=== PATIENT | male | born 1985 | race Caucasian/White ===

== ENCOUNTER 2017-05-04 23:19 | Emergency (ER) | payer OTHER ==
[~2017-05-04] VITALS: Ht 177.8 cm; Wt 117.8 kg
[2017-05-04 23:26] VITALS: TEMP 36.7; Ht 177.8 cm; Wt 117.8 kg
[2017-05-04 23:51] VITALS: O2SAT 98
[2017-05-04 23:56] LABS: BASO % 0.3 %; BASO ABS # 0.04 K/uL (0-0.2); COMPLETE YES; EOS % 1.5 %; HEMATOCRIT 48.9 % (42-52); IG% 0.5 %; LYMPH % 26.9 %; LYMPH ABS # 3.13 K/uL (1.2-3.4); MEAN CELL VOLUME 88.4 fL (80-100); MEAN CORPUSCULAR HEMOGLOBIN 29.8 pg (25-34); MEAN CORPUSCULAR HGB CONC 33.7 g/dl (32-36); MEAN PLATELET VOLUME 9.7 fL (7.4-10.4); MONO % 8.9 %; NEUT % 61.9 %; PLATELET COUNT 277 K/uL (130-400); RED BLOOD COUNT 5.53 M/uL (4.7-6.1); WHITE BLOOD COUNT 11.63 K/uL (4.8-10.8)
[2017-05-05 00:09] LABS: POINT OF CARE TROPONIN I < 0.030 ng/ml (0-0.045)
[2017-05-05 00:14] LABS: ALT/SGPT 47 U/L (12-78); BLOOD UREA NITROGEN 21 mg/dl (7-18); BUN/CREATININE RATIO 17.5 (10-20); CALCIUM 8.8 mg/dl (8.5-10.1); CARBON DIOXIDE 26 mmol/L (21-32); CHLORIDE 107 mmol/L (98-107); GLUCOSE 83 mg/dl (70-99); SODIUM 144 mmol/L (136-145)
[2017-05-05 00:18] LABS: ALKALINE PHOSPHATASE 101 U/L (45-117)
[2017-05-05 00:19] LABS: AST/SGOT 30 U/L (15-37)
[2017-05-05] MEDS ORDERED: ALBUT/IPRATROP 3MG/0.5MG NEB 3 ML VIAL INH STA (00:27)
[2017-05-05] MEDS ORDERED: KETOROLAC TROMETHAMINE 30 MG/ML VIAL IV STA (00:27)
[2017-05-05] MEDS ORDERED: RANITIDINE HCL 50 MG/100 ML D5W IV STA (00:31)
[2017-05-05 00:40] LABS: POTASSIUM 3.8 mmol/L (3.5-5.1)
--- NOTE | 2017-05-05 02:56 | EMERGENCY ROOM VISIT NOTE ---
History First contact with patient: 23:24 Chief Complaint: CHEST PAIN Stated Complaint: RIGHT LOWER CHEST PAIN Nursing Triage Summary: Pt states he developed midsternal chest pain around 2030 with associated SOB. History of Present Illness The patient is a 32 year old male who presents to the Emergency Room with complaints of midsternal right-sided chest pain since 8:30 tonight with shortness of breath. Patient discussed pain as aching, ranging in severity 6 out of 10. Breathing makes it worse and nothing makes it better. Patient denies cough, congestion, back pain, leg pain or swelling, nausea, vomiting, diarrhea, abdominal pain. He is tolerating by mouth fluids and food. Review of Systems See HPI for pertinent positives & negatives. A total of 10 systems reviewed and were otherwise negative. Past Medical/Surgical History Diverticulitis Family History Diabetes mellitus FH: heart disease Social History Smoking Status: Current Every Day Smoker Alcohol Use: none Drug Use: none Marital Status: single Housing Status: lives with family Occupation Status: unemployed Current/Historical Medications No Active Prescriptions or Reported Meds Allergies Coded Allergies: No Known Allergies (Unverified , NONE, 05/04/17) Physical Exam Vital Signs Date Time Temp Pulse Resp B/P (MAP) Pulse Ox O2 Delivery O2 Flow Rate FiO2 05/05/17 02:59 69 18 115/62 98 Room Air 05/05/17 01:57 68 18 130/74 95 Room Air 05/05/17 00:30 77 20 124/77 97 Room Air 05/04/17 23:51 98 Room Air 05/04/17 23:51 97 Room Air 05/04/17 23:42 97 Room Air 05/04/17 23:39 71 05/04/17 23:26 36.7 89 18 131/82 95 Room Air Physical Exam VITALS: Vitals are noted on the nurse's note and reviewed by myself. Vital signs stable. GENERAL: Pleasant male, in no acute distress, nondiaphoretic, well-developed well-nourished. SKIN: The skin was without rashes, erythema, edema, or bruising. There is no tenting of the skin. Capillary reflex less than 2 seconds. HEAD: Normocephalic atraumatic. EARS: External auditory canals clear, tympanic membranes pearly french without erythema or effusion bilaterally. EYES: Pupils equal round and reactive to light and accommodation. Conjunctivae without injection, sclerae without icterus. Extraocular movements intact. NOSE: Patent, turbinates without inflammation or discharge. MOUTH: Mucous membranes moist. Pharynx without erythema or exudate. Uvula midline. Airway patent. Tongue does not deviate. NECK: Supple without nuchal rigidity. No lymphadenopathy. No thyromegaly. Cervical spine is nontender. No JVD. HEART: Regular rate and rhythm without murmurs gallops or rubs. Tender to palpation LUNGS: Clear to auscultation bilaterally without wheezes, rales or rhonchi. No dullness to percussion. No retractions or accessory muscle use. ABDOMEN: Positive bowel sounds x 4. Normal tympanic percussion. Soft, minimally tender to palpation epigastric region, no CVA tenderness without masses or organomegaly. [place] sign negative. No guarding or rebound tenderness. MUSCULOSKELETAL: No muscle atrophy, erythema, or edema noted. NEURO: Patient was alert and oriented to person place and time. Normal sensation to light and sharp touch. No focal neurological deficits. Medical Decision & Procedures Laboratory Results 05/04/17 23:35 Red Blood Count 5.53, Mean Corpuscular Volume 88.4, Mean Corpuscular Hemoglobin 29.8, Mean Corpuscular Hemoglobin Concent 33.7, Mean Platelet Volume 9.7, Neutrophils (%) (Auto) 61.9, Lymphocytes (%) (Auto) 26.9, Monocytes (%) (Auto) 8.9, Eosinophils (%) (Auto) 1.5, Basophils (%) (Auto) 0.3, Neutrophils # (Auto) 7.18, Lymphocytes # (Auto) 3.13, Monocytes # (Auto) 1.04, Eosinophils # (Auto) 0.18, Basophils # (Auto) 0.04 05/04/17 23:35 Test 05/04/17 23:35 05/04/17 23:49 05/05/17 02:37 White Blood Count 11.63 K/uL (4.8-10.8) Red Blood Count 5.53 M/uL (4.7-6.1) Hemoglobin 16.5 g/dL (14.0-18.0) Hematocrit 48.9 % (42-52) Mean Corpuscular Volume 88.4 fL (80-100) Mean Corpuscular Hemoglobin 29.8 pg (25-34) Mean Corpuscular Hemoglobin Concent 33.7 g/dl (32-36) Platelet Count 277 K/uL (130-400) Mean Platelet Volume 9.7 fL (7.4-10.4) Neutrophils (%) (Auto) 61.9 % Lymphocytes (%) (Auto) 26.9 % Monocytes (%) (Auto) 8.9 % Eosinophils (%) (Auto) 1.5 % Basophils (%) (Auto) 0.3 % Neutrophils # (Auto) 7.18 K/uL (1.4-6.5) Lymphocytes # (Auto) 3.13 K/uL (1.2-3.4) Monocytes # (Auto) 1.04 K/uL (0.11-0.59) Eosinophils # (Auto) 0.18 K/uL (0-0.5) Basophils # (Auto) 0.04 K/uL (0-0.2) RDW Standard Deviation 40.9 fL (36.4-46.3) RDW Coefficient of Variation 12.6 % (11.5-14.5) Immature Granulocyte % (Auto) 0.5 % Immature Granulocyte # (Auto) 0.06 K/uL (0.00-0.02) Anion Gap 11.0 mmol/L (3-11) Est Creatinine Clear Calc Drug Dose 113.7 ml/min Estimated GFR () 92.2 Estimated GFR (Non- 79.5 BUN/Creatinine Ratio 17.5 (10-20) Calcium Level 8.8 mg/dl (8.5-10.1) Total Bilirubin 0.7 mg/dl (0.2-1) Direct Bilirubin 0.1 mg/dl (0-0.2) Aspartate Amino Transf (AST/SGOT) 30 U/L (15-37) Alanine Aminotransferase (ALT/SGPT) 47 U/L (12-78) Alkaline Phosphatase 101 U/L (45-117) Troponin I < 0.015 ng/ml (0-0.045) Total Protein 8.1 gm/dl (6.4-8.2) Albumin 4.1 gm/dl (3.4-5.0) Lipase 207 U/L (73-393) Bedside D-Dimer 283 ng/mlFEU (0-450) Bedside Troponin I < 0.030 ng/ml (0-0.045) Medications Administered Medications (Trade) Dose Ordered Sig/Светлана Route Start Time Stop Time Status Last Admin Dose Admin Ranitidine HCl (zANTac IV) 50 mg NOW STAT IV 05/05/17 00:31 05/05/17 00:32 DC 05/05/17 00:37 50 MG ED Course Prior records/ancillary studies reviewed. Triage Nursing notes reviewed. Additional history obtained from family. The patient's history was concerning for chest pain. Differential diagnosis: Etiologies such as cardiac ischemia, aortic dissection, pulmonary embolism, pneumonia, pneumothorax, musculoskeletal, infections, pericarditis, myocarditis , esophageal rupture, gastrointestinal, as well as others were entertained. Physical examination: As above. ER treatment provided: Patient was observed On reassessment the patient felt better. Diagnostic interpretation by me: The electrocardiogram was negative for pathologic change. Normal sinus, normal intervals, no acute ST-T wave changes. Impression normal sinus rhythm interpreted by myself The labs revealed negative troponin 2 that is 2 hours apart. Negative d-dimer Imaging studies: Chest x-ray with no acute consolidation, pneumothorax or free air per my interpretation Ultrasound negative for cholecystitis Exam and history seem consistent with chest pain most likely cardiac in etiology. Patient had a normal EKG and 2 troponins that were negative there were greater than 2 hours apart. Negative d-dimer. No pneumonia. He was advised to avoid activity that causes pain and follow-up family care in a few days or here in the ER sooner for chest pain, difficulty breathing, worsening signs or symptoms or as needed. By the evaluation outlined above emergent etiologies such as cardiac ischemia, aortic dissection, pulmonary embolism, pneumonia, pneumothorax, infections, pericarditis, myocarditis, gastrointestinal, as well as others were deemed relatively unlikely. The pt informed about the findings as listed above. All questions were answered and pleased with the treatment. Return instructions were outlined and the patient was discharged in stable condition. Referral: The patient was referred back to primary care physician for follow-up in 2 to 3 days for a recheck of the current condition. Case reviewed with my attending Medical Decision As above Impression Primary Impression: Substernal precordial chest pain Departure Information Dispostion Home / Self-Care Condition GOOD Prescriptions No Active Prescriptions or Reported Meds Referrals Joe Baca M.D. (PCP) Patient Instructions My [facility] Additional Instructions Protonix 40 m tablet daily for next 2 weeks. Take this on an empty stomach. Try Maalox or Zantac for breakthrough symptoms for reflux. Avoid large meals. Avoid acidic foods. Rest and drink plenty of fluids as tolerated. Continue current medications. Avoid strenuous activities and anything that worsens your pain. Resume normal activities once your symptoms resolve. Return to the ER immediately for worsening or persistent chest pain, abdominal pain, black or blood in your stools, vomiting, fevers, chest pains, difficulty breathing, worsening of your condition, or as needed. Follow up with your primary physician in 2-3 days for a recheck of your current condition.
[2017-05-05 02:59] VITALS: BP 115/62; O2SAT 98
[2017-05-05] MEDS ORDERED: PANTOprazole SOD 40 MG TAB PO STA (03:01)
[2017-05-05] MEDS ORDERED: PANT40TA PO (03:02)
[2017-05-05 03:11] VITALS: PULSE 68
--- NOTE | 2017-05-05 07:15 | DIAGNOSTIC IMAGING REPORT ---
ABDOMINAL ULTRASOUND, RIGHT UPPER QUADRANT HISTORY: epigastric pain, ? GB. COMPARISON: Abdomen and pelvis CT 04/10/2016. FINDINGS: Pancreas: Obscured by overlying bowel gas. Liver: Geographic hyperechoic area within the right hepatic lobe. This favors focal fat. This has a non masslike appearance. This measures approximate 8.5 x 4.8 cm. Gallbladder: No gallbladder wall thickening. No gallstones. CBD: 4 mm. Right kidney: No hydronephrosis. IMPRESSION: 1. Normal gallbladder. No gallstones. 2. Geographic hyperechoic area within the right hepatic lobe which favors focal fat. Electronically signed by: Charles Urbano M.D. 05/05/2017 7:14 AM Dictated Date/Time: 05/05/2017 7:12 AM
--- NOTE | 2017-05-05 07:42 | DIAGNOSTIC IMAGING REPORT ---
CHEST ONE VIEW PORTABLE HISTORY: Atypical CHEST PAIN COMPARISON: Chest 04/10/2016. FINDINGS: The lungs are clear. Cardiac silhouette is normal in size. No pleural effusions. No pneumothorax. IMPRESSION: No acute process. Electronically signed by: Charles Urbano M.D. 05/05/2017 7:41 AM Dictated Date/Time: 05/05/2017 7:40 AM
== END 2017-05-05 03:06 | disposition home or self-care (01) ==
LOC: C.EDB 23:21
DX: R07.2 Precordial pain (principal); K57.92 Diverticulitis of intestine, part unspecified, without perforation or abscess without bleeding; F17.200 Nicotine dependence, unspecified, uncomplicated

== ENCOUNTER 2017-06-15 07:30 | Emergency (ER) | payer OTHER ==
[~2017-06-15] VITALS: Ht 180.3 cm; Wt 115.7 kg
[2017-06-15 07:32] VITALS: TEMP 36.8; Ht 180.3 cm; Wt 115.7 kg
[2017-06-15] MEDS ORDERED: HYDROCODONE/ACETAMOPHEN 5/325MG TAB PO STA (07:50)
--- NOTE | 2017-06-15 07:55 | EMERGENCY ROOM VISIT NOTE ---
ED Visit Note First contact with patient: 07:36 CHIEF COMPLAINT: Toothache /broken tooth HISTORY OF PRESENT ILLNESS: This 32-year-old male presents to the ER with chief complaint of left upper tooth breaking off and being painful. The patient states that he bit into a piece of taffy this morning and his left upper tooth broke off and is now painful. The patient does not think he has dental insurance. He thought we could just pull it in the emergency room which is why he came here today. The patient denies any facial pain or redness. REVIEW OF SYSTEMS: 6 system review was performed and was negative unless stated otherwise in history of present illness. PMH: The patient is healthy; there is no significant medical or surgical history. SOCIAL HISTORY: Patient lives with his fianc. The patient admits to tobacco use but denies any alcohol use. PHYSICAL EXAM: Vital Signs: Were reviewed Reviewed Nurse's notes. GENERAL: 32- year-old male appears uncomfortable secondary to tooth pain. MENTAL Status: Alert and oriented 3. FACE: No erythema or edema noted. MOUTH: Left upper tooth is broken off at the gumline. Surrounding gums without erythema or edema. NECK: Supple, no lymphadenopathy noted. EMERGENCY COURSE: The patient was evaluated. The patient was given [place] 5/325 mg 2 tablets by mouth for pain. I had the case management manager give him information on local tenderness. The patient was discharged home in stable condition with his fianc driving. DIAGNOSIS: Dentalgia/broken tooth DISCHARGE INSTRUCTIONS & TREATMENT: Take amoxicillin as prescribed. Ibuprofen 600 mg every 6 hours with food for pain. Take [place] as needed for more severe pain. Do not drive while taking the [place]. Appointment with a dentist as soon as possible for definitive care. Allergies Coded Allergies: No Known Allergies (Unverified , NONE, 05/04/17) Vital Signs Date Time Temp Pulse Resp B/P (MAP) Pulse Ox O2 Delivery O2 Flow Rate FiO2 06/15/17 07:32 36.8 67 20 132/83 95 Room Air Departure Information Referrals Joe Baca M.D. (PCP) Patient Instructions My [facility]
[2017-06-15] MEDS ORDERED: HYDR-5688 PO (07:57)
[2017-06-15] MEDS ORDERED: AMOX500C3 PO (07:57)
[2017-06-15 08:12] VITALS: BP 129/77; PULSE 68; O2SAT 99
== END 2017-06-15 08:13 | disposition home or self-care (01) ==
LOC: C.EDB 07:33
DX: K08.89 Other specified disorders of teeth and supporting structures (principal); F17.200 Nicotine dependence, unspecified, uncomplicated

== ENCOUNTER 2017-12-14 11:36 | Emergency (ER) | payer OTHER ==
[~2017-12-14] VITALS: Ht 177.8 cm; Wt 111.1 kg
[~2017-12-14 11:36] MED LIST: HYDR-5688 PO
[2017-12-14 11:39] VITALS: TEMP 36.8; Ht 177.8 cm; Wt 111.1 kg
[2017-12-14] MEDS ORDERED: SODIUM CHLORIDE 0.9% 1000ML 1,000 ML IV STA (11:43)
[2017-12-14] MEDS ORDERED: ONDANSETRON INJ 2 MG/ML 2 ML VIAL IV STA (11:43)
[2017-12-14] MEDS ORDERED: COUGH DROP (SUGAR FREE) LOZ 24 LOZ/1 BOX LOZ STA (12:03)
[2017-12-14] MEDS ORDERED: KETOROLAC TROMETHAMINE 30 MG/ML VIAL IV STA (12:03)
--- NOTE | 2017-12-14 12:09 | DIAGNOSTIC IMAGING REPORT ---
SINGLE VIEW CHEST CLINICAL HISTORY: Generalized weakness. Cough and vomiting. FINDINGS: An AP, portable, upright chest radiograph is compared to study dated 05/04/2017. The examination is degraded by portable technique and patient rotation. The cardiomediastinal silhouette is unremarkable. The lungs and pleural spaces are clear. No pneumothorax is seen. The bony thorax is grossly intact. IMPRESSION: No active disease in the chest. Electronically signed by: Ramu Jefferson M.D. 12/14/2017 12:08 PM Dictated Date/Time: 12/14/2017 12:07 PM
[2017-12-14 12:10] LABS: BASO % 0.2 %; BASO ABS # 0.02 K/uL (0-0.2); EOS ABS # 0.16 K/uL (0-0.5); HEMATOCRIT 46.8 % (42-52); HEMOGLOBIN 16.1 g/dL (14.0-18.0); IG# 0.06 K/uL (0.00-0.02); LYMPH % 10.1 %; LYMPH ABS # 0.82 K/uL (1.2-3.4); MEAN CORPUSCULAR HEMOGLOBIN 30.6 pg (25-34); MEAN CORPUSCULAR HGB CONC 34.4 g/dl (32-36); MEAN PLATELET VOLUME 9.6 fL (7.4-10.4); MONO % 9.3 %; MONO ABS # 0.75 K/uL (0.11-0.59); NEUT % 77.7 %; NEUT ABS # 6.28 K/uL (1.4-6.5); PLATELET COUNT 199 K/uL (130-400); RED CELL DISTRIBUTION WIDTH SD 42.1 fL (36.4-46.3); WHITE BLOOD COUNT 8.09 K/uL (4.8-10.8)
[2017-12-14 12:27] LABS: ALBUMIN 3.7 gm/dl (3.4-5.0); ALT/SGPT 32 U/L (12-78); AST/SGOT 18 U/L (15-37); BLOOD UREA NITROGEN 13 mg/dl (7-18); CALCIUM 8.4 mg/dl (8.5-10.1); CARBON DIOXIDE 22 mmol/L (21-32); GLUCOSE 120 mg/dl (70-99); LIPASE 126 U/L (73-393); POTASSIUM 3.6 mmol/L (3.5-5.1); SODIUM 135 mmol/L (136-145)
[2017-12-14 12:38] LABS: ALKALINE PHOSPHATASE 113 U/L (45-117); TOTAL PROTEIN 7.9 gm/dl (6.4-8.2)
--- NOTE | 2017-12-14 12:52 | EMERGENCY ROOM VISIT NOTE ---
History Report prepared by Jung: Muna Brand Under the Supervision of: Dr. Roger Vincent M.D. First contact with patient: 11:43 Chief Complaint: VOMITING Stated Complaint: VOMITING, COUGH, LUNGS HURT, 105 TEMP Nursing Triage Summary: c/o vomiting, coughing, congestion, painful lungs. Ongoing since yesterday. pt reports he took his temp this am and it was 105. took Robitussin. denies taking Ibuprofen or Tylenol today History of Present Illness The patient is a 32 year old male who presents to the Emergency Room with complaints of persistent fever starting yesterday. The patient started feeling sick yesterday. He has had a cough, fever, and vomiting. He last vomited this morning. His lungs feel painful. He tried taking Dayquil and Nyquil to no significant relief. He reports body aches, sore throat, and ear ache. He has had left ear ringing with intermittent pain for the past 4 days. He has had some rash and itching over his forearms. His daughter was recently diagnosed with the flu. He has a history of diverticulitis. He has noticed recently that he has abdominal pain whenever he eats ketchup or tomato sauce. He currently does not have any abdominal pain. He denies any history of gallbladder problems. Pt denies LOC, headache, chills, diaphoresis, visual changes, neck pain, breathing difficulties, abdominal pain, back pain, melena, hematochezia, urinary symptoms, numbness, weakness, lymphadenopathy, or other complaints. Source of History: patient Onset: yesterday Position: other (global) Quality: other (fever) Timing: other (persistent) Associated Symptoms: + sorethroat, + cough, + vomiting, + rash Note: Pt reports body aches, ear pain. Review of Systems See HPI for pertinent positives and negatives. A total of ten systems were reviewed and were otherwise negative. Past Medical & Surgical Medical Problems: (1) Acute diverticulitis (2) Back pain (3) Back pain (4) Chest pain (5) Chest pain (6) Urethral discharge in male (7) Urethral discharge in male (8) Vomiting and diarrhea (9) Vomiting and diarrhea Family History Diabetes mellitus FH: heart disease Social History Smoking Status: Former Smoker Alcohol Use: none Drug Use: none Marital Status: single Housing Status: lives with family Occupation Status: unemployed Current/Historical Medications Scheduled Oseltamivir (Tamiflu), 75 MG PO BID Scheduled PRN Promethazine Hcl (Phenergan), 25 MG PO Q6H PRN for Nausea Allergies Coded Allergies: No Known Allergies (Unverified , NONE, 12/14/17) Physical Exam Vital Signs Date Time Temp Pulse Resp B/P (MAP) Pulse Ox O2 Delivery O2 Flow Rate FiO2 12/14/17 13:34 72 125/74 99 12/14/17 12:35 82 16 131/77 98 Room Air 12/14/17 11:39 36.8 93 18 131/84 95 Room Air Physical Exam GENERAL: Awake, alert, mildly ill appearing, no distress HEAD: Normocephalic, atraumatic. No edema. EYES: Normal conjunctiva. Sclera non-icteric. EARS: Right TM normal. Left TM normal. NOSE: Mild congestion. OROPHARYNX: Lips, tongue, and mucosa unremarkable. No erythema or exudate. NECK: Supple. No nuchal rigidity. FROM. No adenopathy. Negative jolt accentuation test. RESPIRATORY: CTA bilaterally. No wheezes rales or rhonchi. CARDIAC: Borderline tachycardic rate, normal rhythm. ABDOMEN: Soft, non distended. No tenderness to palpation. NEURO: Normal sensorium. SKIN: No rash or jaundice noted Medical Decision & Procedures ER Provider Diagnostic Interpretation: Xray results as stated below per my and radiologist interpretation: SINGLE VIEW CHEST CLINICAL HISTORY: Generalized weakness. Cough and vomiting. FINDINGS: An AP, portable, upright chest radiograph is compared to study dated 05/04/2017. The examination is degraded by portable technique and patient rotation. The cardiomediastinal silhouette is unremarkable. The lungs and pleural spaces are clear. No pneumothorax is seen. The bony thorax is grossly intact. IMPRESSION: No active disease in the chest. Electronically signed by: Ramu Jefferson M.D. 12/14/2017 12:08 PM Dictated Date/Time: 12/14/2017 12:07 PM Laboratory Results 12/14/17 11:55 Red Blood Count 5.26, Mean Corpuscular Volume 89.0, Mean Corpuscular Hemoglobin 30.6, Mean Corpuscular Hemoglobin Concent 34.4, Mean Platelet Volume 9.6, Neutrophils (%) (Auto) 77.7, Lymphocytes (%) (Auto) 10.1, Monocytes (%) (Auto) 9.3, Eosinophils (%) (Auto) 2.0, Basophils (%) (Auto) 0.2, Neutrophils # (Auto) 6.28, Lymphocytes # (Auto) 0.82, Monocytes # (Auto) 0.75, Eosinophils # (Auto) 0.16, Basophils # (Auto) 0.02 12/14/17 11:55 Test 12/14/17 11:45 12/14/17 11:55 Influenza Type A Antigen POS for Influ A (NEG) Influenza Type B Antigen Neg for Influ B (NEG) White Blood Count 8.09 K/uL (4.8-10.8) Red Blood Count 5.26 M/uL (4.7-6.1) Hemoglobin 16.1 g/dL (14.0-18.0) Hematocrit 46.8 % (42-52) Mean Corpuscular Volume 89.0 fL (80-100) Mean Corpuscular Hemoglobin 30.6 pg (25-34) Mean Corpuscular Hemoglobin Concent 34.4 g/dl (32-36) Platelet Count 199 K/uL (130-400) Mean Platelet Volume 9.6 fL (7.4-10.4) Neutrophils (%) (Auto) 77.7 % Lymphocytes (%) (Auto) 10.1 % Monocytes (%) (Auto) 9.3 % Eosinophils (%) (Auto) 2.0 % Basophils (%) (Auto) 0.2 % Neutrophils # (Auto) 6.28 K/uL (1.4-6.5) Lymphocytes # (Auto) 0.82 K/uL (1.2-3.4) Monocytes # (Auto) 0.75 K/uL (0.11-0.59) Eosinophils # (Auto) 0.16 K/uL (0-0.5) Basophils # (Auto) 0.02 K/uL (0-0.2) RDW Standard Deviation 42.1 fL (36.4-46.3) RDW Coefficient of Variation 13.0 % (11.5-14.5) Immature Granulocyte % (Auto) 0.7 % Immature Granulocyte # (Auto) 0.06 K/uL (0.00-0.02) Prothrombin Time 10.9 SECONDS (9.0-12.0) Prothromb Time International Ratio 1.0 (0.9-1.1) Activated Partial Thromboplast Time 30.0 SECONDS (21.0-31.0) Partial Thromboplastin Ratio 1.2 Anion Gap 7.0 mmol/L (3-11) Est Creatinine Clear Calc Drug Dose 120.3 ml/min Estimated GFR () 102.4 Estimated GFR (Non- 88.4 BUN/Creatinine Ratio 11.7 (10-20) Calcium Level 8.4 mg/dl (8.5-10.1) Magnesium Level 2.0 mg/dl (1.8-2.4) Total Bilirubin 0.3 mg/dl (0.2-1) Direct Bilirubin < 0.1 mg/dl (0-0.2) Aspartate Amino Transf (AST/SGOT) 18 U/L (15-37) Alanine Aminotransferase (ALT/SGPT) 32 U/L (12-78) Alkaline Phosphatase 113 U/L (45-117) Troponin I < 0.015 ng/ml (0-0.045) Total Protein 7.9 gm/dl (6.4-8.2) Albumin 3.7 gm/dl (3.4-5.0) Lipase 126 U/L (73-393) Thyroid Stimulating Hormone (TSH) 1.090 uIu/ml (0.300-4.500) Laboratory results reviewed by me Medications Administered Medications (Trade) Dose Ordered Sig/Светлана Route Start Time Stop Time Status Last Admin Dose Admin Sodium Chloride 1,000 ml @ 999 mls/hr Q1H1M STAT IV 12/14/17 11:43 12/14/17 12:43 DC 12/14/17 11:43 999 MLS/HR Ondansetron HCl (Zofran Inj) 4 mg NOW STAT IV 12/14/17 11:43 12/14/17 11:45 DC 12/14/17 11:59 4 MG Ketorolac Tromethamine (Toradol Inj) 15 mg NOW STAT IV 12/14/17 12:03 12/14/17 12:04 DC 12/14/17 12:35 15 MG Menthol ([place]) 1 corby NOW STAT CORBY 12/14/17 12:03 12/14/17 12:04 DC 12/14/17 12:35 1 CORBY Oseltamivir Phosphate (Tamiflu Cap) 75 mg NOW STAT PO 12/14/17 12:53 12/14/17 12:54 DC 12/14/17 13:36 75 MG ECG Indication: SOB/dyspnea Rate (beats per minute): 86 Rhythm: normal sinus Findings: no acute ischemic change, no ectopy Change: Patient's electrocardiogram was interpreted by me. ED Course 1143: Zofran Inj 4 mg IV, NSS 1000 ml @ 999 mls/hr IV. 1202: The patient was evaluated in room C7. A complete history and physical exam was performed. 1203: Menthol 1 corby CORBY, Toradol Inj 15 mg IV. 1253: Tamiflu Cap 75 mg PO. 1312: I reevaluated the patient. Discussed results and discharge instructions: He verbalized understanding and agreement. The patient is ready for discharge. Medical Decision Prior records/ancillary studies reviewed. Triage Nursing notes reviewed and agree them. The patient's history was concerning for fever. Differential diagnosis: Etiologies such as viral syndrome, otitis, pharyngitis, pneumonia, influenza, meningitis, urinary tract infection, sepsis, bacteremia, as well as others were entertained. Physical examination: As above. ER treatment provided: Saline 1 L bolus Zofran Cepacol Toradol On reassessment the patient felt better. Tamiflu Diagnostics interpreted by me: The labs revealed an unremarkable CBC and chemistry panel. The patient is influenza positive Imaging studies: Chest x-ray as above The patient has influenza. He was hydrated. He is doing much better. He was given a work note and prescription for Tamiflu. He is also given a prescription of Phenergan. By the evaluation outlined above emergent etiologies such as otitis, pharyngitis, pneumonia, meningitis, urinary tract infection, sepsis, bacteremia , as well as others were deemed relatively unlikely. The patient was informed about the findings as listed above. All questions were answered and he was pleased with the treatment. Return instructions were outlined and the patient was discharged in stable condition. Outpatient prescription management: Tamiflu Phenergan Referral: The patient was referred back to his primary care physician for follow-up in 2 to 3 days for a recheck of the current condition. Medication Reconcilliation Current Medication List: was personally reviewed by me Blood Pressure Screening Patient's blood pressure: Elevated blood pressure Blood pressure disposition: Referred to PCP Impression Primary Impression: Influenza Additional Impression: Vomiting Scribe Attestation The scribe's documentation has been prepared under my direction and personally reviewed by me in its entirety. I confirm that the note above accurately reflects all work, treatment, procedures, and medical decision making performed by me. Departure Information Dispostion Home / Self-Care Prescriptions Promethazine Hcl (Phenergan) 25 Mg Tab 25 MG PO Q6H Y for Nausea, #10 TAB Prov: Roger Vincent MD 12/14/17 Oseltamivir (Tamiflu) 75 Mg Cap 75 MG PO BID, #9 CAP Prov: Roger Vincent MD 12/14/17 Referrals No Doctor, Assigned (PCP) Patient Instructions My [facility] Additional Instructions Tamiflu 75 mg twice daily for 5 days. Acetaminophen(Tylenol) may be used for fever or pain. Use 1000mg every six hours as needed. Avoid using more than 4000mg in a 24 hour period. (AND/OR) Ibuprofen(Motrin, Advil) may be used for fever or pain. Use 600mg every six hours as needed. Take with food. Avoid using more than 2400mg in a 24 hour period. Do not use 2400mg per day for more than three consecutive days without physician direction. Prolonged inappropriate use can lead to stomach upset or ulcers. Phenergan 25mg tabs, one every six hours for nausea. Do not drive if taking. Rest and drink plenty of fluids. Controlling your fever with Tylenol and Ibuprofen as above will make you feel better. Wash your hands after nose blowing, sneezing, or coughing. Most germs are spread through contact, therefore improper hygiene may result in your close contacts and loved ones becoming ill just like you. Return to the ER for severe headache, neck stiffness, chest pain, difficulty breathing, fevers, vomiting, worsening of your condition, or as needed. Follow up with your primary physician this week for a recheck of your current condition. Problem Qualifiers
[2017-12-14 12:53] LABS: INFLUENZA B ANTIGEN Neg for Influ B (NEG)
[2017-12-14] MEDS ORDERED: OSELTAMIVIR PHOSPHATE 75 MG CAP PO STA (12:53)
[2017-12-14] MEDS ORDERED: PROM25TA9 PO (13:09)
[2017-12-14] MEDS ORDERED: OSEL75CA12 PO (13:09)
[2017-12-14 13:34] VITALS: BP 125/74; PULSE 72; O2SAT 99
== END 2017-12-14 13:34 | disposition home or self-care (01) ==
LOC: C.EDB 11:38 → C.EDC 13:34
DX: J10.1 Influenza due to other identified influenza virus with other respiratory manifestations (principal); R11.10 Vomiting, unspecified; K57.92 Diverticulitis of intestine, part unspecified, without perforation or abscess without bleeding; Z83.3 Family history of diabetes mellitus; Z82.49 Family history of ischemic heart disease and other diseases of the circulatory system; Z87.891 Personal history of nicotine dependence

== ENCOUNTER 2017-12-20 13:11 | Emergency (ER) | payer OTHER ==
[~2017-12-20] VITALS: Ht 177.8 cm; Wt 109.0 kg
[~2017-12-20 13:11] MED LIST changes: -HYDR-5688 PO; +OSEL75CA12 PO; +PROM25TA9 PO
[2017-12-20 13:19] VITALS: TEMP 36.9; Ht 177.8 cm; Wt 109.0 kg
[2017-12-20] MEDS ORDERED: DEXAMETHASONE SOD INJ 4 MG/ML VIAL IV STA (13:32)
[2017-12-20] MEDS ORDERED: SODIUM CHLORIDE 0.9% 1000ML 1,000 ML IV STA (13:32)
[2017-12-20] MEDS ORDERED: KETOROLAC TROMETHAMINE 30 MG/ML VIAL IV STA (13:32)
[2017-12-20] MEDS ORDERED: ONDANSETRON INJ 2 MG/ML 2 ML VIAL IV STA (13:32)
[2017-12-20] MEDS ORDERED: DiphenhydrAMINE HCL 50 MG/ML VIAL IV STA (13:32)
[2017-12-20 14:07] LABS: BASO % 0.2 %; BASO ABS # 0.02 K/uL (0-0.2); EOS % 1.1 %; EOS ABS # 0.12 K/uL (0-0.5); HEMOGLOBIN 14.8 g/dL (14.0-18.0); IG# 0.09 K/uL (0.00-0.02); LYMPH % 19.2 %; LYMPH ABS # 2.19 K/uL (1.2-3.4); MEAN CELL VOLUME 89.4 fL (80-100); MEAN CORPUSCULAR HEMOGLOBIN 30.8 pg (25-34); MEAN CORPUSCULAR HGB CONC 34.4 g/dl (32-36); MEAN PLATELET VOLUME 9.5 fL (7.4-10.4); MONO % 8.4 %; MONO ABS # 0.96 K/uL (0.11-0.59); NEUT % 70.3 %; NEUT ABS # 8.02 K/uL (1.4-6.5); PLATELET COUNT 229 K/uL (130-400); RED CELL DISTRIBUTION WIDTH CV 12.7 % (11.5-14.5)
[2017-12-20 14:18] LABS: CALCIUM 8.2 mg/dl (8.5-10.1); CREATININE 0.92 mg/dl (0.60-1.40); POTASSIUM 3.7 mmol/L (3.5-5.1)
--- NOTE | 2017-12-20 14:27 | DIAGNOSTIC IMAGING REPORT ---
CT OF THE HEAD WITHOUT CONTRAST CLINICAL HISTORY: Vomiting. Severe headache. Evaluate for hemorrhage. COMPARISON STUDY: Head CT June 29, 2011. CT DOSE: 537.48 mGy.cm TECHNIQUE: Helical axial images of the head were obtained without IV contrast. Automated exposure control was utilized for the study. A dose lowering technique was utilized adhering to the principles of ALARA. FINDINGS: No acute intracranial hemorrhage, midline shift or mass effect is present. Ventricular system is normal. The basilar cisterns are patent. There are no extra-axial collections. Romo-white differentiation is maintained. There are no findings to suggest acute dural sinus thrombosis or acute territorial infarct. A 1.3 cm partially calcified posterior occipital scalp lesion likely reflects a sebaceous cyst. There is no calvarial fracture. Venous gas within the cavernous sinus is likely from IV insertion. There is extensive mucosal thickening of the visualized portions of the sinuses with multiple air-fluid levels. Mastoid air cells are clear. IMPRESSION: 1. No acute intracranial findings. 2. Extensive sinusitis, likely acute. Electronically signed by: Hipolito Singh M.D. 12/20/2017 2:26 PM Dictated Date/Time: 12/20/2017 2:22 PM
--- NOTE | 2017-12-20 14:56 | DIAGNOSTIC IMAGING REPORT ---
CHEST 2 VIEWS ROUTINE CLINICAL HISTORY: EVALUATE HEADACHE COMPARISON STUDY: Chest radiograph December 14, 2017. FINDINGS: Lung volumes are within normal limits. There is no pneumothorax or pleural effusion. Pulmonary vascularity is normal. Cardiomediastinal silhouette is normal. No consolidation is identified. IMPRESSION: No acute cardiopulmonary findings. Electronically signed by: Hipolito Singh M.D. 12/20/2017 2:54 PM Dictated Date/Time: 12/20/2017 2:54 PM
[2017-12-20] MEDS ORDERED: FLUT0.15 INTNAS (15:36)
[2017-12-20] MEDS ORDERED: AMOX875T PO (15:36)
[2017-12-20 15:49] VITALS: BP 110/71; PULSE 73; O2SAT 99
--- NOTE | 2017-12-20 20:46 | EMERGENCY ROOM VISIT NOTE ---
ED Visit Note First contact with patient: 13:22 Chief Complaint: Severe headache, difficulty breathing and vomiting. History of Present Illness: Mr. Alfaro is a 32-year-old white male who ambulates into the ED with complaints of severe frontal headache, cough, difficulty breathing and vomiting. Patient reports 6 days ago he was diagnosed with influenza and started on Tamiflu. Patient reports he finished his Tamiflu and the next morning when he awoke he reports that he awoke from sleep with a severe frontal headache, nasal congestion, unable to breathe through his nose and shortness of breath. The symptoms have been constant over the last day and a half. Currently he describes his headache as a pounding sensation. He places his discomfort in the bifrontal area with left-sided prominence. He rates his discomfort 10/10. His pain is radiating into his face; maxillary area. He has not identified any aggravating or alleviating factors related to the pain. He has not taken any medication for pain prior to arrival at the hospital. Associated with his pain he reports he's been having a productive cough of greenish sputum, greenish drainage from the nose with occasionally some blood, difficulty breathing through his nose, nausea/vomiting, shortness of breath, neck pain without stiffness. He denies skin eruptions, skin color changes, recent head trauma, dizziness, lightheadedness, all abnormal neurological symptoms, fevers, sore throat, chest pain, hemoptysis, palpitations, previous clots, claudication, recent surgery/ inactivity/extended travel, abdominal pain, diarrhea, urinary symptoms, hematuria, lower extremity weakness/numbness/tingling. Review of Systems: As noted above in history of present illness. All body systems were reviewed and found to be negative as noted above. Past Medical History: Diverticulitis. Current Medications: Patient denies. Allergies to Medications: Patient denies. Social History: Patient is currently employed; he feels safe in his home environment; he admits to tobacco use and denies alcohol use. Physical Examination: Vital Signs: Date Time Temp Pulse Resp B/P (MAP) Pulse Ox O2 Delivery O2 Flow Rate FiO2 12/20/17 15:49 73 16 110/71 99 12/20/17 14:07 78 18 113/70 97 Room Air 12/20/17 13:19 36.9 71 16 132/84 95 Room Air GENERAL: 32-year-old female in mild to moderate distress due to pain, nontoxic- appearing, afebrile and hemodynamically stable. NEUROLOGICAL: Awake, alert and oriented to person, place and time. Answering questions appropriately and following commands. Normal gait. Good hand eye coordination. No focal motor or sensory deficits. Cranial nerves II through XII grossly intact. Good short-term and long-term recall. SKIN: Warm, dry and pink. No soft tissue eruptions or trauma noted. HEENT: Atraumatic and normocephalic. Mild tenderness over the bilateral frontal and maxillary sinuses. No erythema. External ears are nontender. Auditory canals are pink and patent. Tympanic membranes were pearly french with normal light reflex. PERRLA. EOMI without nystagmus. Sclera white and conjunctiva pink without drainage. No drainage from naris, with audible congestion. Oral cavity moist and pink. Uvula is midline and no abscesses are seen. No posterior pharyngeal erythema or edema. There is some mild postnasal drip noted. Airway is patent. Speech is normal and clear. No tonsillar hypertrophy or exudates. Speech normal. No lymphadenopathy. Trachea midline. No laryngeal tenderness. No jugular venous distention. BACK: No tenderness over the bony cervical, thoracic or lumbar spines. No nuchal rigidity or meningismus. Full range of motion of the cervical spine. No CVA tenderness. THORAX: Lungs sounds are clear to auscultation and equal bilaterally with symmetrical chest wall. No wheezing, rales or rhonchi. HEART: Regular rate and rhythm. No gallops, rubs or murmurs are appreciated. ABDOMEN: Obese, soft and nontender. Positive bowel sounds in all quadrants. No guarding, rigidity or organomegaly. EXTREMITIES: Moves all extremities well on command and with purpose. All distal neurovascular statuses are intact and equal bilaterally. No calf tenderness or cords. ED Course: Patient is assessed as noted above per Patient's medication list was reviewed. Laboratory Testing: Test 12/20/17 13:40 Range/Units White Blood Count 11.40 4.8-10.8 K/uL Red Blood Count 4.81 4.7-6.1 M/uL Hemoglobin 14.8 14.0-18.0 g/dL Hematocrit 43.0 42-52 % Mean Corpuscular Volume 89.4 80-100 fL Mean Corpuscular Hemoglobin 30.8 25-34 pg Mean Corpuscular Hemoglobin Concent 34.4 32-36 g/dl Platelet Count 229 130-400 K/uL Mean Platelet Volume 9.5 7.4-10.4 fL Neutrophils (%) (Auto) 70.3 % Lymphocytes (%) (Auto) 19.2 % Monocytes (%) (Auto) 8.4 % Eosinophils (%) (Auto) 1.1 % Basophils (%) (Auto) 0.2 % Neutrophils # (Auto) 8.02 1.4-6.5 K/uL Lymphocytes # (Auto) 2.19 1.2-3.4 K/uL Monocytes # (Auto) 0.96 0.11-0.59 K/uL Eosinophils # (Auto) 0.12 0-0.5 K/uL Basophils # (Auto) 0.02 0-0.2 K/uL RDW Standard Deviation 41.0 36.4-46.3 fL RDW Coefficient of Variation 12.7 11.5-14.5 % Immature Granulocyte % (Auto) 0.8 % Immature Granulocyte # (Auto) 0.09 0.00-0.02 K/uL Erythrocyte Sedimentation Rate 45 0-14 mm/hr Sodium Level 139 136-145 mmol/L Potassium Level 3.7 3.5-5.1 mmol/L Chloride Level 108 98-107 mmol/L Carbon Dioxide Level 24 21-32 mmol/L Anion Gap 7.0 3-11 mmol/L Blood Urea Nitrogen 15 7-18 mg/dl Creatinine 0.92 0.60-1.40 mg/dl Est Creatinine Clear Calc Drug Dose 142.5 ml/min Estimated GFR () 127.1 Estimated GFR (Non- 109.7 BUN/Creatinine Ratio 16.8 10-20 Random Glucose 97 70-99 mg/dl Calcium Level 8.2 8.5-10.1 mg/dl Chest X-Rays: Were read by myself and the radiologist showing no acute infiltrates, effusions or pneumothorax. Normal heart silhouette and bony anatomy. This x-ray was compared to her previous and no acute changes were noted. Head CT: Was reviewed by myself and read by the radiologist showing no acute intracranial abnormalities or skull fractures. Excessive mucosal thickening of the visualized portions of the sinuses and multiple air-fluid levels consistent with an acute extensive sinusitis. Mastoid air cells are clear. Patient was hydrated with normal saline and received 30 mg of Toradol IV, 4 mg of Zofran IV, 10 mg of Decadron IV, 25 mg of Benadryl IV for his symptoms. Patient was reassessed multiple times during his stay in the emergency department. Patient's case was reviewed with Dr. Gleason; we agreed on diagnostic approach , treatment, disposition and plan. Patient was educated about today's findings and instructed on his treatment plan ; he verbalized understanding and agreement with this plan. Clinical Impression: Acute sinusitis. Disposition: Patient discharged home in stable condition; prior to departure he was reassessed and subjectively reported that he was pain free but still felt slightly congested. He also reports resolution of nausea and cough. Plan: Patient was encouraged to alternate 600 mg of ibuprofen and 650 mg of acetaminophen every 3 hours as needed for pain and/or fevers. Patient was encouraged to use OTC pseudoephedrine for congestion and follow packaging instructions. Patient was prescribed 875 mg of Augmentin 2 times a day for 10 days. Patient was prescribed 2 sprays of Flonase in each nostril 2 times a day for 5 days. Patient was encouraged to avoid tobacco use. Patient was encouraged to use vaporizer. Patient was encouraged to follow-up with his PCP for recheck in 3-4 days. Patient was encouraged return ED for worsening symptoms, uncontrolled fevers, wheezing, worsening shortness of breath, any abnormal neurological symptoms or any new/concerning symptoms.
== END 2017-12-20 15:48 | disposition home or self-care (01) ==
LOC: C.EDB 13:13 → C.EDC 15:48
DX: J01.90 Acute sinusitis, unspecified (principal); Z72.0 Tobacco use

== ENCOUNTER 2020-06-19 12:38 | Observation (INO) ==
[2020-06-19] MEDS ORDERED: MoRPHine SULFATE 4 MG/ML 1 ML CARP\\VIAL IV STA ×2 (12:49→14:44)
[2020-06-19] MEDS ORDERED: ONDANSETRON INJ 2 MG/ML 2 ML VIAL IV STA (12:49)
--- NOTE | 2020-06-19 12:51 | Emergency Department Note ---
History of Present Illness General Chief complaint: Flank Pain Stated complaint: R FLANK PAIN Time Seen by Provider: 06/19/20 12:42 History of Present Illness Maximum Pain Intensity: 10 This is a 35-year-old male that presents to the emergency department via private vehicle with complaints of "right flank pain". The patient states that he began with right upper quadrant abdominal pain last night. It is worse after eating. He notes if he holds pressure to the area it is mildly better. He denies any pertinent past medical history, surgeries or allergies. He states that the discomfort comes in waves but when it is severe it is debilitating. Overall discomfort at this time currently is a 10/10. No chest pain or shortness of breath. No loss of taste or smell. Mild diarrhea x1 around 3 AM earlier today. No history of abdominal surgeries. He still has a gallbladder. Home Medications Home Medications Medication Instructions Recorded Confirmed Type No Known Home Medications 06/19/20 06/19/20 History Allergies Allergy/AdvReac Type Severity Reaction Status Date / Time No Known Allergies Allergy NONE Unverified 06/19/20 12:59 Past Med/Surg History Medical History No pertinent past medical history Surgical History No pertinent past surgical history Social History Smoking Status: Current every day smoker Tobacco Type: Cigarettes Preferred Language: Slovenian Feels Safe at Home: Yes Review of Systems A total of 10 systems reviewed and were otherwise negative Physical Exam Vital Signs Vital Signs - 24 hr 06/19/20 12:39 06/19/20 14:12 06/19/20 14:56 Temperature 36.9 C Temperature Source Oral Pulse Rate 92 H Pulse Rate [Left Finger] 61 79 Respiratory Rate 20 18 18 Respiratory Effort / Characteristics Non-Labored Respiratory Depth Normal Blood Pressure 132/86 Blood Pressure [Left Arm] 115/66 134/87 Blood Pressure Mean 101 Blood Pressure Mean [Left Arm] 82 102 Pulse Oximetry 96 96 97 Oxygen Delivery Method Room Air Room Air Room Air Sepsis Recent Fever Within 48 Hours No Sepsis New/Unexplained Change in Mental Status N/A Sepsis Action Taken by Nursing No Action Required VITAL SIGNS - Vital signs and nursing notes were reviewed. Stable and afebrile. GENERAL -35-year-old male appearing his stated age who is in no acute distress. Communicates well with provider and answers questions appropriately. SKIN - Without rashes. No meningeal or petechial rash. HEAD - NC/AT. EYES - PERRL with EOMI bilaterally. Sclera anicteric. EARS - No deformities of external structures noted on gross examination bilaterally. NOSE - Midline and without cyanosis. No epistaxis or purulent drainage noted. MOUTH/OROPHARYNX - Without perioral cyanosis. NECK - Neck with FROM. Supple to palpation. No nuchal rigidity. LUNGS - Chest wall symmetric without accessory muscle use, intercostals retractions, or central cyanosis. Normal vesicular breath sounds CTA B/L. No wheezes, rales, or rhonchi appreciated. CARDIAC - RRR with S1/S2. No murmur, rubs, or gallops appreciated. ABDOMEN - Abdominal contour normal without pulsations or visible masses. There is right upper quadrant abdominal tenderness palpation. No other abdominal tenderness. The abdomen is soft and nonrigid. BS normoactive all four quad rants. EXTREMITIES - No clubbing or peripheral cyanosis. No pretibial edema present. +5/5 strength noted in UE/LE bilaterally. NEUROLOGIC - Cranial nerves II through XII grossly intact. PSYCH - A&O, and cooperates fully with examiner. Pt is very pleasant and interacts well with examiner. Course Administered Medications Discontinued Medications Sodium Chloride (Nss 1000ml) 1,000 mls @ 999 mls/hr IV .Q1H1M RENAE Stop: 06/19/20 14:00 Last Infusion: 06/19/20 14:08 Dose: 0 mls/hr Documented by: [id number] Admin: 06/19/20 13:03 Dose: 999 mls/hr Documented by: [id number] Morphine Sulfate (Morphine Sulfate) 4 mg IV NOW STA Stop: 06/19/20 12:50 Last Admin: 06/19/20 13:03 Dose: 4 mg Documented by: [id number] Morphine Sulfate (Morphine Sulfate) 4 mg IV NOW STA Stop: 06/19/20 14:45 Last Admin: 06/19/20 14:55 Dose: 4 mg Documented by: [id number] Ondansetron HCl (Zofran) 4 mg IV NOW STA Stop: 06/19/20 12:50 Last Admin: 06/19/20 13:03 Dose: 4 mg Documented by: [id number] Medical Decision Making Laboratory Data Result diagrams: 06/19/20 13:05 06/19/20 13:05 Lab Results 06/19/20 06/19/20 Range/Units 13:05 13:05 WBC 10.01 (4.8-10.8) K/uL RBC 5.61 (4.7-6.1) M/uL Hgb 17.5 (14.0-18.0) g/dL Hct 49.5 (42-52) % MCV 88.2 (80-100) fL MCH 31.2 (25-34) pg MCHC 35.4 (32-36) g/dL RDW Std Deviation 40.7 (36.4-46.3) fL RDW Coeff of Kathryn 12.7 (11.5-14.5) % Plt Count 328 (130-400) K/uL MPV 9.6 (7.4-10.4) fL Immature Gran % (Auto) 0.5 % Neut % (Auto) 66.1 % Lymph % (Auto) 23.7 % Whitman % (Auto) 8.2 % Eos % (Auto) 1.3 % Baso % (Auto) 0.2 % Neut # (Auto) 6.62 H (1.4-6.5) K/uL Lymph # (Auto) 2.37 (1.2-3.4) K/uL Whitman # (Auto) 0.82 H (0.11-0.59) K/uL Eos # (Auto) 0.13 (0-0.5) K/uL Baso # (Auto) 0.02 (0-0.2) K/uL Immature Gran # (Auto) 0.05 H (0.00-0.02) K/uL Sodium 136 (136-145) mmol/L Potassium 4.0 (3.5-5.1) mmol/L Chloride 107 (98-107) mmol/L Carbon Dioxide 22 (21-32) mmol/L Anion Gap 8.0 (3-11) BUN 17 (7-18) mg/dl Creatinine 1.06 (0.6-1.4) mg/dl Est Cr Clr Drug Dosing 125.9 ml/min Est GFR ( Amer) 104.9 Est GFR (Non-Af Amer) 90.5 BUN/Creatinine Ratio 16.1 (10-20) Glucose 104 H (70-99) mg/dl Calcium 9.3 (8.5-10.1) mg/dl Total Bilirubin 0.6 (0.2-1) mg/dl AST 14 L (15-37) U/L ALT 30 (12-78) U/L Alkaline Phosphatase 115 (45-117) U/L Total Protein 8.4 H (6.4-8.2) gm/dl Albumin 3.9 (3.4-5.0) gm/dl Globulin 4.5 H (2.5-4.0) gm/dl Albumin/Globulin Ratio 0.9 (0.9-2) Lipase 115 (73-393) U/L Imaging Data Radiologist's Impression: US gallbladder HISTORY: 35 years-old Male RUQ abd pain, worse postprandially acute right upper quadrant abdominal pain COMPARISON: CT abdomen pelvis 04/10/2016 TECHNIQUE: Multiple real-time sonographic images of the abdominal right upper quadrant were obtained assessing grayscale appearance and color flow FINDINGS: Limited exam secondary to patient body habitus. The pancreas is partially obscured by bowel gas. Increased echogenicity of the central liver suggests probable focal fatty infiltration. There is nonspecific mild gallbladder wall thickening measuring up to 4 mm. No shadowing cholelithiasis or pericholecystic fluid. Sonographic Alcantara sign reported as negative. Common bile duct is normal, 4 mm. Probable trace layering gallbladder sludge. Unremarkable right kidney without hydronephrosis. IMPRESSION: 1. Nonspecific mild gallbladder wall thickening with probable trace sludge. No cholelithiasis or pericholecystic fluid. 2. No biliary ductal dilation. ACT 112: Negative or not required by law. The above report was generated using voice recognition software. It may contain grammatical, syntax or spelling errors. Electronically signed by: Luis Rios M.D. 06/19/2020 2:01 PM [facility] Narrative Patient was seen and evaluated as above in room B04. Review was performed of nursing notes and vital signs. After obtaining a thorough history and physical examination the above work up was performed. He presents to us today with atraumatic right upper quadrant abdominal pain. Vital signs are stable. He is in a fair amount of pain on examination particularly to palpation of the right upper quadrant. No chest pain or shortness of breath. No fever. He had mild diarrhea last night. Pain is worse postprandially. He still has the gallblad jeniffer. IV access was established. Labs were drawn. No leukocytosis or anemia. No emergent metabolic disturbance. Lipase within normal limits. Gallbladder ultrasound was obtained and reveals nonspecific mild gallbladder wall thickening with probable trace sludge. No cholelithiasis or pericholecystic fluid. No biliary ductal dilatation. Although the patient's labs and ultrasound are relatively reassuring his clinical presentation is concerning for that of gallbladder etiology therefore I did discuss the presentation with the general surgery team. They came to evaluate the patient. He will be admitted for further evaluation and management and likely surgical intervention tomorrow. Please refer to further documentation regarding his stay. GCS: 15 In the evaluation and treatment of this patient, the following differential diagnoses were considered: ASC, [place], Pneumonia, GERD, Cholecystitis, Ascending Cholangitis, Cholydocholithiasis, Bowel Obstruction, PE, Amongst Others. Impression & Plan RUQ pain Discharge Plan Visit Data *Final* Discharge Date/Time: 06/19/20 16:09 Chief Complaint: Flank Pain Stated Complaint: R FLANK PAIN ED Provider: Roger House ED Midlevel Provider: Christopher Olson Discharge Problem: RUQ pain Patient Disposition: Admitted As Inpatient Condition: Good Discharge Instructions Interventions: ED Discharge Assessment Last Done: 06/19/20 16:09
[2020-06-19] MEDS ORDERED: SODIUM CHLORIDE 0.9% 1000ML 1,000 ML IV SCH (13:00)
[2020-06-19 13:17] LABS: Basophils # (auto) 0.02 K/uL (0-0.2); Basophils % (auto) 0.2 %; Eosinophils # (auto) 0.13 K/uL (0-0.5); Eosinophils % (auto) 1.3 %; Hematocrit (blood only) 49.5 % (42-52); Hemoglobin 17.5 g/dL (14.0-18.0); Immature Granulocytes # (auto) 0.05 K/uL (0.00-0.02); Immature Granulocytes % (auto) 0.5 %; Lymphocytes # (auto) 2.37 K/uL (1.2-3.4); Lymphocytes % (auto) 23.7 %; Mean Corpuscular Hemoglobin 31.2 pg (25-34); Mean Corpuscular Hgb Conc 35.4 g/dL (32-36); Mean Corpuscular Volume 88.2 fL (80-100); Mean Platelet Volume 9.6 fL (7.4-10.4); Monocytes # (auto) 0.82 K/uL (0.11-0.59); Monocytes % (auto) 8.2 %; Neutrophils # (auto) 6.62 K/uL (1.4-6.5); Neutrophils % (auto) 66.1 %; Platelet Count 328 K/uL (130-400); RDW Coefficient of Variation 12.7 % (11.5-14.5); RDW Standard Deviation 40.7 fL (36.4-46.3); Red Blood Count 5.61 M/uL (4.7-6.1); White Blood Count 10.01 K/uL (4.8-10.8)
[2020-06-19 13:32] LABS: Albumin Level 3.9 gm/dl (3.4-5.0); BUN Creatinine Ratio 16.1 (10-20); Calcium 9.3 mg/dl (8.5-10.1); Creatinine Clr Calc Pharmacy 125.9 ml/min; Est GFR (African American) 104.9; Est GFR (Non-African American) 90.5
[2020-06-19 13:36] LABS: Albumin Globulin Ratio 0.9 (0.9-2); Bilirubin,Total 0.6 mg/dl (0.2-1); Globulin 4.5 gm/dl (2.5-4.0); Total Protein 8.4 gm/dl (6.4-8.2)
--- NOTE | 2020-06-19 14:02 | Ultrasound Report ---
US gallbladder HISTORY: 35 years-old Male RUQ abd pain, worse postprandially acute right upper quadrant abdominal p ain COMPARISON: CT abdomen pelvis 04/10/2016 TECHNIQUE: Multiple real-time sonographic images of the abdominal right upper quadrant were obtained assessing grayscale appearance and color flow FINDINGS: Limited exam secondary to patient body habitus. The pancreas is partially obscured by bowel gas. Increased echogenicity of the central liver suggests probable focal fatty infiltration. There is nonspecific mild gallbladder wall thickening measuring u p to 4 mm. No shadowing cholelithiasis or pericholecystic fluid. Sonographic Alcantara sign reported as negative. Common bile duct is normal, 4 mm. Probable trace layering gallbladder sludge. Unremarkable right kidney without hydronephrosis. IMPRESSION: 1. Nonspecific mild gallbladder wall thickening with probable trace sludge. No cholelithiasis or nubia cholecystic fluid. 2. No biliary ductal dilation. ACT 112: Negative or not required by law. The above report was generated using voice recognition software. It may contain grammatical, syntax o r spelling errors. Electronically signed by: Luis Rios M.D. 06/19/2020 2:01 PM
--- NOTE | 2020-06-19 15:23 | History & Physical Report ---
Date of Service June 19, 2020 Assessment & Plan (1) RUQ pain: This is a 35y M with no significant PMH who presents to the [facility] ED on 06/19/20 with complaints of abdominal pain starting yesterday evening. Patient states pain is mostly located in the right upper abdomen, associated with nausea & diarrhea. He states pain was the most unbearable after eating dinner yesterday PM and after some bites of cereal this AM. In the ED workup revealed a WBC of 10, normal LFTs, and a RUQ US was obtained revealing nonspecific mild gallbladder wall thickening with probable trace sludge. No cholelithiasis or pericholecystic fluid. His symptoms & exam do correlate with a gallbladder etiology, however lab work and US imaging are not as convincing. At this point given patient's symptoms we will admit him for supportive care and management. Keep NPO with IVF and order prn pain/nausea medication. We will start IV abx in the event this could be an early cholecystitis and tentatively place him on the OR schedule for tomorrow for lap cholecystectomy with cholangiogram pending patient's progress. History of Present Illness Primary Care Provider: NO PCP This is a 35y M with no significant PMH who presents to the [facility] ED on 06/19/20 with complaints of abdominal pain starting yesterday. Patient states the pain started during the day, but after he ate dinner the pain became unbearable. His dinner consisted of stuffed shells. He points to his RUQ when asked where the pain is located and states it did radiated towards the back. Patient tried taking some Nyquil to go to sleep, but woke up with the same intensity of pain. He noted he had a few bouts of diarrhea between 2a-7a today. He tried eating a couple bites of cereal this AM around 7:30am but he continued with severe pain, prompting him to come to the ED for further evaluation. In the ED patient's labs show a WBC of 10 and normal LFTs. A RUQ US was obtained that revealed nonspecific mild gallbladder wall thickening with probable trace sludge, without evidence of stones or pericholecystic fluid. Patient reports this is his first episode of pain similar to this. He denies chest pain, shortness of breath, fevers or chills. He had a bout of diverticulitis years ago, but this does not feel the same. He has no prior abdominal surgeries. We were consulted for further evaluation. Allergies Allergy/AdvReac Type Severity Reaction Status Date / Time No Known Allergies Allergy NONE Unverified 06/19/20 12:59 Home Medications Home Medications Medication Instructions Recorded Confirmed Type No Known Home Medications 06/19/20 06/19/20 History Past Med/Surg History Medical History No pertinent past medical history Surgical History No pertinent past surgical history Social History Smoking Status: Current every day smoker Tobacco Type: Cigarettes Preferred Language: Sinhala Feels Safe at Home: Yes Review of Systems Constitutional: no fever and no chills Respiratory: no dyspnea Cardiovascular: no chest pain Gastrointestinal: + abdominal pain (in right upper abdomen), + bloating, + nausea and + diarrhea/loose stools; no vomiting Physical Exam Physical Exam: awake/alert Constitutional: well developed and well nourished; no acute distress Respiratory: normal respiratory effort Gastrointestinal (Abdomen): Percussion/Palpation: + abdomen tender (ttp RUQ) and abdomen soft Results & Data Results & Data ([facility]) Vital Signs (Past 12 Hours) Vital Signs Temp Pulse Pulse Resp BP BP Pulse Ox 06/19/20 14:56 79 18 134/87 97 06/19/20 14:12 61 18 115/66 96 06/19/20 12:39 36.9 C 92 H 20 132/86 96 US gallbladder HISTORY: 35 years-old Male RUQ abd pain, worse postprandially acute right upper quadrant abdominal pain COMPARISON: CT abdomen pelvis 04/10/2016 TECHNIQUE: Multiple real-time sonographic images of the abdominal right upper quadrant were obtained assessing grayscale appearance and color flow FINDINGS: Limited exam secondary to patient body habitus. The pancreas is partially obscured by bowel gas. Increased echogenicity of the central liver suggests probable focal fatty infiltration. There is nonspecific mild gallbladder wall thickening measuring up to 4 mm. No shadowing cholelithiasis or pericholecystic fluid. Sonographic Alcantara sign reported as negative. Common bile duct is normal, 4 mm. Probable trace layering gallbladder sludge. Unremarkable right kidney without hydronephrosis. IMPRESSION: 1. Nonspecific mild gallbladder wall thickening with probable trace sludge. No cholelithiasis or pericholecystic fluid. 2. No biliary ductal dilation. ACT 112: Negative or not required by law. The above report was generated using voice recognition software. It may contain grammatical, syntax or spelling errors. Electronically signed by: Luis Rios M.D. 06/19/2020 2:01 PM Code Status & VTE Plan VTE Prophylaxis Plan VTE Prophylaxis will be ordered: Yes PG Care Time/CCT Total # of Minutes Spent Total Time Spent with Patient: Total time spent is greater than 50% in coordination of care (as documented) at patient's floor/unit and/or counseling patient: Coding Level of Care Code 61974 OBS Care - Level 3 Diagnoses RUQ pain R10.11
[2020-06-19] MEDS ORDERED: PIPERACILL/TAZOBAC CONSULT ACTIVE PRN (16:42)
[2020-06-19] MEDS ORDERED: ONDANSETRON INJ 2 MG/ML 2 ML VIAL IV PRN (16:42)
[2020-06-19] MEDS ORDERED: PIPERACILLIN/TAZOBACTAM 3.375 GM in DEXTROSE 5% 100 ML IV SCH (16:42)
[2020-06-19] MEDS ORDERED: OXYCODONE/ACETAMINOPHEN 5mg/325mg TAB PO PRN ×2 (16:48)
[2020-06-19] MEDS ORDERED: MoRPHine SULFATE 4 MG/ML 1 ML CARP\\VIAL IV PRN (16:48)
[2020-06-19] MEDS ORDERED: PIPERACILLIN/TAZOBACTAM 4.5 GM in DEXTROSE 5% 100 ML IV ONE (17:00)
[2020-06-19] MEDS: SODIUM CHLORIDE 0.9% 1000ML 1,000 ML IV SCH (17:11)
--- NOTE | 2020-06-19 19:38 | Anesthesiology Consultation ---
Date of Service June 19, 2020 Assessment & Plan (1) Encounter for pre-operative examination: Chart Review Chart Review: Acceptable Risk for Surgery and Patient NOT seen in Pre Admission Testing Consults Requested none Additional Notes COVID testing performed 06/19/2020 and pending at this time - will need to reas sessed by the anesthesia team tomorrow. History Surgery Operation Date: 06/20/20 08:50 Proposed Procedures p Laparoscopic Cholecystectomy with Cholangiogram - Bernard Sherman MD Height/Weight Height: 5 ft 11 in Weight: 117.5 kg Allergies Allergy/AdvReac Type Severity Reaction Status Date / Time No Known Allergies Allergy NONE Unverified 06/19/20 12:59 Medications Home Medications Medication Instructions Recorded Confirmed Last Taken No Known Home Medications 06/19/20 06/19/20 Unknown Active Medications Generic Name Dose Route Start Last Admin Trade Name Freq PRN Reason Stop Dose Admin Sodium Chloride 1,000 mls @ 100 mls/hr 06/19/20 16:42 06/19/20 17:11 Nss 1000ml IV 07/19/20 16:41 100 mls/hr .Q10H RENAE Administration Past Medical History Medical History No pertinent past medical history Past Surgical History Surgical History No pertinent past surgical history Social History Smoking Status: Light tobacco smoker tobacco type: cigarettes Do You Dip or Chew Tobacco: No Hx Alcohol Use: Yes Alcohol type: beer alcohol intake frequency: holidays/special occasions only Hx Substance Use: No substance use type: does not use Physical Exam Vital Signs Last Vital Signs Temp 37.0 C 06/19/20 16:30 Pulse 53 L 06/19/20 16:30 Resp 14 06/19/20 16:30 BP 120/81 06/19/20 16:30 Pulse Ox 97 06/19/20 16:30 Testing Laboratory Results 06/19/20 13:05 06/19/20 13:05
[2020-06-19] MEDS: MoRPHine SULFATE 2 MG/ML CARP IV PRN (21:01)
[2020-06-19] MEDS: PIPERACILLIN/TAZOBACTAM 4.5 GM in DEXTROSE 5% 100 ML IV SCH (21:44)
[2020-06-20] MEDS: MoRPHine SULFATE 2 MG/ML CARP IV PRN (06:05)
[2020-06-20] MEDS: PIPERACILLIN/TAZOBACTAM 4.5 GM in DEXTROSE 5% 100 ML IV SCH ×2 (06:07→13:33)
[2020-06-20 06:16] LABS: Appearance Urine Slightly Cloudy (Clear); Bilirubin Urine Negative (Negative); Blood Urine Negative (Negative); Color Urine Yellow; Glucose Urine UA Negative (Negative); Ketones Urine Negative (Negative); Leukocyte Esterase Urine 1+ (Negative); Nitrite Urine Negative (Negative); Protein Urine Negative (Negative); Specific Gravity Urine 1.025 (1.000-1.030); Urobilinogen Urine Negative (Negative); pH Urine 5.5 (4.5-7.5)
[2020-06-20 06:36] LABS: Epithelial Cell Urine 20-30 /lpf (0-5)
[2020-06-20 06:37] LABS: Bacteria Urine 1+ (Negative); RBC Urine 0-4 /hpf (0-4); WBC Urine >30 /hpf (0-5)
[2020-06-20 06:55] LABS: Basophils # (auto) 0.02 K/uL (0-0.2); Basophils % (auto) 0.2 %; Eosinophils # (auto) 0.22 K/uL (0-0.5); Eosinophils % (auto) 2.4 %; Hematocrit (blood only) 46.8 % (42-52); Hemoglobin 15.8 g/dL (14.0-18.0); Immature Granulocytes # (auto) 0.05 K/uL (0.00-0.02); Immature Granulocytes % (auto) 0.6 %; Lymphocytes # (auto) 2.99 K/uL (1.2-3.4); Lymphocytes % (auto) 32.9 %; Mean Corpuscular Hemoglobin 30.4 pg (25-34); Mean Corpuscular Hgb Conc 33.8 g/dL (32-36); Mean Corpuscular Volume 90.2 fL (80-100); Mean Platelet Volume 9.6 fL (7.4-10.4); Monocytes # (auto) 0.74 K/uL (0.11-0.59); Monocytes % (auto) 8.1 %; Neutrophils # (auto) 5.06 K/uL (1.4-6.5); Neutrophils % (auto) 55.8 %; Platelet Count 287 K/uL (130-400); RDW Coefficient of Variation 12.9 % (11.5-14.5); Red Blood Count 5.19 M/uL (4.7-6.1); White Blood Count 9.08 K/uL (4.8-10.8)
[2020-06-20 07:23] LABS: Albumin Level 3.1 gm/dl (3.4-5.0); BUN Creatinine Ratio 12.1 (10-20); Bilirubin Direct 0.2 mg/dl (0-0.2); Calcium 8.2 mg/dl (8.5-10.1); Creatinine Clr Calc Pharmacy 113.9 ml/min; Est GFR (African American) 92.1; Est GFR (Non-African American) 79.5; Potassium 4.3 mmol/L (3.5-5.1)
[2020-06-20] MEDS ORDERED: NEOSTIGMINE METHYLSULFATE 5 MG/5 ML SYR ONE (07:24)
[2020-06-20] MEDS ORDERED: GLYCOPYRROLATE 0.2 MG/ML VIAL ONE (07:24)
[2020-06-20] MEDS ORDERED: LIDOCAINE HCL 2% 2 ML VIAL/AMP(20MG/ML) INFIL ONE (07:24)
[2020-06-20] MEDS ORDERED: MIDAZOLAM HCL 1 MG/ML 2ML VIAL ONE (07:24)
[2020-06-20] MEDS ORDERED: DEXAMETHASONE SOD INJ 4 MG/ML VIAL ONE (07:24)
[2020-06-20] MEDS ORDERED: fentaNYL citrate 100 MCG/2 ML VIAL ONE (07:24)
[2020-06-20] MEDS ORDERED: ROCURONIUM BROMIDE 10 MG/ML 5 ML VIAL IV ONE (07:24)
[2020-06-20] MEDS ORDERED: ONDANSETRON INJ 2 MG/ML 2 ML VIAL ONE (07:24)
[2020-06-20] MEDS ORDERED: PROPOFOL IV EMULSION 10 MG/ML 20 ML VIAL IV ONE ×2 (07:24→09:46)
[2020-06-20 07:25] LABS: Bilirubin,Total 0.8 mg/dl (0.2-1)
[2020-06-20] MEDS ORDERED: ePHEDrine sulfate 50 MG/ML AMP IV PRN (08:07)
[2020-06-20] MEDS ORDERED: ATROPINE SULFATE 0.1 MG/ML 10ML SYR IV PRN (08:07)
[2020-06-20] MEDS ORDERED: ONDANSETRON INJ 2 MG/ML 2 ML VIAL IV PRN (08:07)
[2020-06-20] MEDS ORDERED: HYDROmorphone INJ 2 MG/ML SYR/VIAL IV PRN (08:07)
--- NOTE | 2020-06-20 08:07 | History & Physical Bridge Note ---
Date of Service June 20, 2020 History & Physical Bridge Note I have examined the patient, reviewed the History & Physical and in the interval since the performance of the History & Physical I have noted the following changes of clinical significance: no changes noted Patient had a fairly good night although still having discomfort in the upper abdomen the right On exam has some right upper quadrant guarding negative Alcantara sign rest of the abdomen is negative We will proceed with laparoscopic cholecystectomy cholangiogram possible open risk and complication were explained to the patient including bleeding infection converting to an open procedure injury to other organs and he understands and wants to proceed accordingly Permit for surgery was signed and witnessed
[2020-06-20] MEDS ORDERED: LIDOCAINE/EPINEPHRINE 1% 20 ML VIAL ONE (08:54)
[2020-06-20] MEDS ORDERED: SUCCINYLCHOLINE CHLORIDE 20 MG/ML 10 ML VIAL IV ONE (09:28)
[2020-06-20] MEDS ORDERED: OPTIRAY 300 IV PRN (09:47)
--- NOTE | 2020-06-20 10:12 | Post Operative Brief Note ---
PG Immediate Post Op with CF Date of Surgery June 20, 2020 Pre & Post Diagnosis Operation Date: 06/20/20 08:50 Pre-Op Diagnosis: Right upper quadrant pain, Non-specific mild gallbladder wall thickening Post-Op Diagnosis: Right upper quadrant pain, Non-specific mild gallbladder wall thickening I identified the patient and participated in the time-out.: Yes Procedure Operation Date: 06/20/20 08:50 Actual Procedures p Laparoscopic Cholecystectomy with Intraoperative Cholangiogram - Bernard Sherman MD Surgeon Bernard Sherman MD Sprinkler Worker Lexx grace Estimated Blood Loss 50 Findings Consistent with Post-Op Diagnosis Specimens Specimen Description: A: Gallbladder
--- NOTE | 2020-06-20 10:20 | Fluoroscopy Report ---
FL cholangiogram OR HISTORY: Post cholecystectomy. FLUOROSCOPY TIME: 4 seconds. FINDINGS: Fluoroscopy was provided for an intraoperative cholangiogram status post cholecystectomy. C ontrast was injected through the cystic duct remnant. The common bile duct is normal in course and ca liber. There are no filling defects seen within the common bile duct to suggest a retained stone. Co ntrast extends into the small bowel. There is no intrahepatic bile duct dilatation. IMPRESSION: Fluoroscopy provided for an intraoperative cholangiogram status post cholecystectomy. No filling defects within the common bile duct. ACT 112: Negative or not required by law. The above report was generated using voice recognition software. It may contain grammatical, syntax or spelling errors. Electronically signed by: Beau Banuelos M.D. 06/20/2020 10:19 AM
--- NOTE | 2020-06-20 10:31 | Operative Report ---
PG Post Operative Report Pre & Post Diagnosis Operation Date: 06/20/20 08:50 Pre-Op Diagnosis: Right upper quadrant pain, Non-specific mild gallbladder wall thickening Post-Op Diagnosis: Right upper quadrant pain, Non-specific mild gallbladder wall thickening I identified the patient and participated in the time-out.: Yes Procedure Operation Date: 06/20/20 08:50 Actual Procedures p Laparoscopic Cholecystectomy with Intraoperative Cholangiogram - Bernard Sherman MD The patient was brought into the operating theater supine position general endotracheal anesthesia the abdomen was prepped Betadine scrub a solution properly draped systemic antibiotics was on board patient was identified timeout was had small incision was made above the umbilical area sufficient enough that would accommodate a 5 mm trocar we entered the abdomen with a Veress needle on the initial passage we were preperitoneal with high pressures therefore we repositioned and insufflated to 15 mmHg without any issues 5 mm trocar followed point of interest back to no injury identified direct visualization 5 mm epigastric port was placed with preemptive local analgesia 0.5% Marcaine plain similarly 2 5 mm subcostal ports were placed in a similar fashion with preemptive analgesic the patient was placed in reverse Trendelenburg return to the left side the omentum over the gallbladder and liver was done brought down without any difficulty the gallbladder wall was thickened significant after we aspirated her an aspirating needle to decompress it and were able then to elevated with a lateral grasper and placing towards the right upper quadrant direction and we were able then to walk down to the neck of the gallbladder usually blunt dissection most of the plug were able to identify the structure which is a cystic duct coming the gallbladder while away from the common bile duct as we opened up the window there we were able then to place a 5 mm clip at the takeoff of the cystic duct small opening cystic duct was made #4 urethral catheter transversing abdominal wall and a 14 Angiocath was placed in the cystic duct we controlled it with his grasper as we flushed and aspirated without any difficulty at this point the patient was placed in supine position fluoroscopically able to get to 3 x-rays which showed free flow into the duodenum no obstruction cholangiocatheter was then removed the cystic duct was doubly clipped just distal to the opening and divided we then walked up towards the neck of the gallbladder more and identified a couple artery small not a significant open artery and we were able to clip and divide elevated the gallbladder from the liver we tried to leave as much is posterior peritoneum was possible but unfortunately we really were not and the gallbladder was freed from the liver with some oozing on the liver bed onto the gallbladder was elevated completely the area was checked hemostasis and appeared overall satisfactory with some oozing gallbladder was free from the liver placed in an Endopouch and taken out intact through the epigastric port this point the subhepatic suprahepatic area was suctioned out with control the gallbladder bed with cautery in a hemostatic fashion minimal oozing that I felt once the omentum was in that area would see a lot of we then placed the camera right upper quadrant port to visualize your initial entry into the umbilical area no adhesions were identified and no evidence of any injury to the bowel as we could look to down from it individual trochars were then removed under direct visualization last the umbilical trocar wound was closed 4-0 Monocryl Steri-Strips applied procedure tolerated well estimated blood loss approximately 50 cc addendum Lexx grace was present the whole time and helped with retraction exposure camera work and wound closure Surgeon Bernard Sherman MD Dispensing Audiologist Lexx grace Estimated Blood Loss 50 Findings Consistent with Post-Op Diagnosis Specimens gallbladder and contents Description of Procedure merda I attest to the content of the Intraoperative Record and any orders documented therein. Any exceptions are noted below.
[2020-06-20] MEDS: fentaNYL citrate 100 MCG/2 ML VIAL IV PRN ×2 (10:40→10:45)
--- NOTE | 2020-06-20 11:19 | Anesthesiology Progress Note ---
Date of Service June 20, 2020 Anesthesia Post Procedure Vital Signs Vital Signs: Temp Pulse Pulse Pulse Resp BP BP 06/20/20 11:10 54 L 14 128/73 06/20/20 11:00 36.4 C L 61 14 130/73 06/20/20 10:50 54 L 14 126/95 06/20/20 10:40 60 16 147/85 H 06/20/20 10:33 36.1 C L 83 16 136/82 06/20/20 08:12 36.6 C 51 L 20 121/70 06/20/20 07:08 36.5 C 51 L 17 112/73 06/19/20 23:35 36.4 C L 52 L 14 107/64 06/19/20 20:12 36.9 C 61 16 126/78 06/19/20 16:30 37.0 C 53 L 14 120/81 06/19/20 16:09 67 18 125/58 L 06/19/20 14:56 79 18 134/87 06/19/20 14:12 61 18 115/66 06/19/20 12:39 36.9 C 92 H 20 132/86 Pulse Ox 06/20/20 11:10 99 06/20/20 11:00 96 06/20/20 10:50 96 06/20/20 10:40 100 06/20/20 10:33 99 06/20/20 08:12 95 06/20/20 07:08 96 06/19/20 23:35 96 06/19/20 20:12 98 06/19/20 16:30 97 06/19/20 16:09 96 06/19/20 14:56 97 06/19/20 14:12 96 06/19/20 12:39 96 Pain Intensity Right Abdomen: Pain Intensity: 2 Transfer of Care Handoff Completed per policy Notes Mental Status: alert / awake / arousable Patient Amnestic to Procedure: Yes Nausea / Vomiting: adequately controlled Pain: adequately controlled Airway Patency, RR, SpO2: stable & adequate BP & HR: stable & adequate Hydration State: stable & adequate Anesthetic Complications: no major complications apparent
[2020-06-20] MEDS ORDERED: LACTATED RINGER'S 1,000 ML IV SCH (11:28)
[2020-06-20] MEDS: SODIUM CHLORIDE 0.9% 1000ML 1,000 ML IV SCH ×2 (11:51→11:53)
--- NOTE | 2020-06-21 14:11 | Discharge Summary ---
Date of Service June 21, 2020 Admission HPI Per Admitting Provider This is a 35y M with no significant PMH who presents to the [facility] ED on 06/19/20 with complaints of abdominal pain starting yesterday. Patient states the pain started during the day, but after he ate dinner the pain became unbearable. His dinner consisted of stuffed shells. He points to his RUQ when asked where the pain is located and states it did radiated towards the back. Patient tried taking some Nyquil to go to sleep, but woke up with the same intensity of pain. He noted he had a few bouts of diarrhea between 2a-7a today. He tried eating a couple bites of cereal this AM around 7:30am but he continued with severe pain, prompting him to come to the ED for further evaluation. In the ED patient's labs show a WBC of 10 and normal LFTs. A RUQ US was obtained that revealed nonspecific mild gallbladder wall thickening with probable trace sludge, without evidence of stones or pericholecystic fluid. Patient reports this is his first episode of pain similar to this. He denies chest pain, shortness of breath, feve rs or chills. He had a bout of diverticulitis years ago, but this does not feel the same. He has no prior abdominal surgeries. We were consulted for further evaluation. Principal Diagnosis Right upper quadrant pain Nonspecific gallbladder wall thickening Discharge Exam awake/alert Gastrointestinal (Abdomen) Inspection/Auscultation: + abdominal surgical incision (c/d/i with ster-strips overtop) Percussion/Palpation: abdomen soft Discharge Data Allergies Allergy/AdvReac Type Severity Reaction Status Date / Time No Known Allergies Allergy NONE Unverified 06/19/20 12:59 Procedures Performed Operation Date: 06/20/20 08:50 Actual Procedures p Laparoscopic Cholecystectomy with Intraoperative Cholangiogram - Bernard Sherman MD Ordered Studies 06/19/20 12:49 US gallbladder Stat 06/20/20 09:56 [place] cholangiogram OR Routine Hospital Course (1) RUQ pain: This is a 35y M who presented to the [facility] ED on 06/19/20 with complaints of RUQ pain, associated with nausea and diarrhea that was made worse after eating. Workup revealed a WBC of 10, normal LFTs, and a RUQ US showing nonspecific mild gallbladder wall thickening with probable trace sludge. No cholelithiasis or pericholecystic fluid. Patient was acutely tender to palpation in the RUQ. Due to symptoms this was concerning for gallbladder etiology. Decision was made to admit the patient overnight for control of pain and nausea with prn medication with plans to take to the OR the following day. On 06/20 the patient was still complaining of RUQ pain, therefore we proceeded to take him to the OR with Dr. Sherman for a laparoscopic cholecystectomy and intraoperative cholangiogram. The patient tolerated the procedure well, see op note for full details. The patient returned to the nursing floor in stable condition. His diet was advanced as tolerated and postop pain was managed with prn medication. He was evaluated in the afternoon on POD#0 and was clinically doing well, therefore he was deemed stable for discharge to home. Incisions c/d/i. He was provided discharge instructions and asked to follow up in surgery clinic within 1 week. Total Time Total Time Spent Total Time Spent (In Minutes): 10 Discharge Plan Discharge Items Patient Disposition: Home - Self-Care Reason For Visit: RUQ PAIN GALLBLADDER ETIOLOGY Discharge Diagnosis: laparoscopic cholecystectomy Condition on Discharge: Good Activity: Per Instructions section Lifting: No more than 10 pounds Bathing Comment: may shower starting 06/21/20; no soaking in tubs/pools Exercise/Sports: Wait until after follow-up appointment Driving/Machine Use: do not resume driving while taking narcotics for pain. Non-emergency contact: Surgeon Call non-emergency contact if: you have any medication questions, your symptoms worsen, your pain is not controlled, your pain is worsening, your pain is unusual for you, your pain is concerning for you, you have a fever, your temperature is above 101.5, your wound has increased redness, your wound has increased drainage and your wound pain has increased Follow-up/Referrals: Bernard Sherman MD [Surgeon] - (Please call to schedule follow up in clinic within 1 week) PCP,NO [Primary Care Provider] - Diet: Regular Addtl Attending Provider Instructions: You will have small white bandages over your incisions called steri-strips. You may shower with these on, they will fall off on their own within 7-10 days Pending Studies at Discharge: Yes Studies:: surgical pathology Stand-Alone Forms: [employer], Smoking Cessation Medications and DC Order Prescriptions: New oxycodone-acetaminophen [Percocet] 5-325 mg tablet 1 - 2 tab PO .q4-6h PRN (Reason: pain, for initial therapy, max 6 tabs per day) Qty: 15 RF: 0 Discharge Orders: Discharge Order (Routine); Ordered 06/20/20 Ordered By: Linda Bocanegra Admission Data Admit Date/Time: 06/19/20 15:18 Attending Provider: Bernard Sherman Admit Provider: Bernard Sherman Primary Care Provider: PCP,NO Other Interventions: Discharge Summary Assessment (RN) Last Done: 06/20/20 14:42 DC Date/Time DO NOT enter until pt leaves facility: 06/20/20 15:50 Coding Level of Care Code D/C Day Management <30 mins Diagnoses RUQ pain R10.11
== END 2020-06-20 15:50 | disposition home or self-care (01) ==
LOC: ED 12:38 → 3W 12:38